=== PATIENT | female | born 1950 | race Caucasian/White ===

== ENCOUNTER 2019-12-08 14:43 | Emergency (ER) | payer OTHER, SELFPAY ==
[~2019-12-08] VITALS: Ht 157.5 cm; Wt 59.0 kg
[2019-12-08 15:01] VITALS: BP 145/80
--- NOTE | 2019-12-08 15:01 | NUR ---
PER PT COUGH SINCE WEDNESDAY. CONCERNED FOR COVID EXPOSURE, FAMILY POSITIVE FOR COVID LIVING AT HOME. REQUESTING TO BE TESTED FOR COVID. PT PRESENTS EUPNIC,VSS,A/OX4,AMBULATORY. NO DISTRESS NOTED. HX DM,RA,PANCREATIC CYST,HTN PT PLACED IN TENT
--- NOTE | 2019-12-08 15:20 | NUR ---
PA AT TENT
--- NOTE | 2019-12-08 15:41 | NUR ---
covid swab obtained in the tent and sent to the lab.
[2019-12-08 15:57] VITALS: BP 132/78
--- NOTE | 2019-12-08 15:57 | NUR ---
Patient discharged with v/s stable. Written and verbal after care instructions given and explained. Patient alert, oriented and verbalized understanding of instructions. Ambulatory with steady gait. All questions addressed prior to discharge. ID band removed. Patient advised to follow up with PMD. Rx of Zofran and Codein Phosphate/Promethazine Hydrochloride given. Patient educated on indication of medication including possible reaction and side effects. Opportunity to ask questions provided and answered.
== END 2019-12-08 15:57 | disposition home or self-care (01) ==
LOC: MED 14:43
DX: U07.1 COVID-19 (principal); E11.9 Type 2 diabetes mellitus without complications; I10 Essential (primary) hypertension; Z90.49 Acquired absence of other specified parts of digestive tract
CPT/HCPCS: 99283; U0003